=== PATIENT | male | born 1985 | race Caucasian/White ===

== ENCOUNTER 2021-03-13 15:49 | Emergency (ER) | payer OTHER ==
[2021-03-13 16:28] VITALS: BMI 22.1
[2021-03-13] MEDS ORDERED: morphine CARPU-JECT 2 MG/1 ML DISP.SYRIN IVPUSH ONE (16:36)
[2021-03-13] MEDS ORDERED: IBUPROFEN 600 MG TABLET (FP) PO ONE ×2 (16:40→17:01)
[2021-03-13] MEDS ORDERED: oxyCODONE HCL 5 MG TABLET PO ONE ×2 (17:46→17:52)
[2021-03-13 20:58] VITALS: BP 132/74; PULSE 78
== END 2021-03-13 19:50 | disposition home or self-care (01) ==
LOC: JER 15:49
PROC: 3E033GC Introduction of Other Therapeutic Substance into Peripheral Vein, Percutaneous Approach (ICD-10-PCS; principal; 2021-03-13)
DX: S43.102A Unspecified dislocation of left acromioclavicular joint, initial encounter (principal); V18.0XXA Pedal cycle driver injured in noncollision transport accident in nontraffic accident, initial encounter
CPT/HCPCS: 70450-TC; 71045-TC-FY; 72125-TC; 73030-TC-LT-FY; 73060-TC-LT-FY; 73110-TC-LT-FY; 73130-TC-LT-FY; 96374; 99285-25